=== PATIENT | male | born 1945 | race Caucasian/White ===

== ENCOUNTER → 2017-08-06 | Outpatient (CLI) | payer OTHER, MEDICARE ==
[~2017-08-06] VITALS: Ht 182.9 cm; Wt 112.5 kg
[2017-08-06] VITALS (13 sets, daily range): BP systolic 112–156; BP diastolic 61–105
[~2017-08-06] MED LIST: ADULT LOW DOSE81 MG PO; CARTIA XT120 M1 PO; CARTIA XT240 M1 PO; COUMADIN 5 MG TA5 M1 PO; CRESTOR10 MG PO; K-TAB10 MEQ PO; LASIX 20 MG TAB20 MG PO; LOPRESSOR; LOPRESSOR25 PO; LOVASA PO; LOVAZA1000 MG PO; NIASPAN 500 MG500 M1 PO; NITROGLYCERIN0.4 MG SL; NOHOMEMEDICATIONS; PLAVIX 75 MG TA75 MG PO; PRAVACHOL20 MG PO; VITAMIN D3400 UNIT; XARELTO20 MG PO; ZYRTEC; ZYRTEC10 MG PO
[2017-08-06 08:30] LABS: HEMATOCRIT 46.7 % (42.0-52.0); MCHC 34.3 g/dL (28.0-37.0); MCV 90.1 fL (80.0-100.0); MPV 9.1 fl. (7.2-11.1); RBC 5.18 mil/uL (4.50-6.00); RDW-CV 13.1 % (10.5-14.5); WBC 9.5 thou/uL (4.0-11.0)
[2017-08-06 08:41] LABS: ANION GAP 12 mmol/L (7-16); BUN 16 mg/dL (7-18); CALCIUM 8.9 mg/dL (8.5-10.1); CHLORIDE 104 mmol/L (98-107); CO2 26 mmol/L (21-32); GLUCOSE 121 mg/dL (70-99); POTASSIUM 4.2 mmol/L (3.5-5.1); SODIUM 142 mmol/L (136-145)
[2017-08-06 08:45] LABS: ALBUMIN 3.4 g/dL (3.4-5.0); ALKALINE PHOSPHATASE 100 U/L (46-116); CHOLESTEROL 183 mg/dL (<200); HDL CHOLESTEROL 31 mg/dL (>40); LDL CHOLESTEROL 114 mg/dL (<100); SGOT 26 U/L (15-37); SGPT 20 U/L (30-65); TC:HDL 5.9 Ratio (Not establshd); TOTAL BILIRUBIN 0.9 mg/dL (<0.1-1.0); TOTAL PROTEIN 6.9 g/dL (6.4-8.2); TRIGLYCERIDE 194 mg/dL (<150); VLDL 39 mg/dL (<40)
[2017-08-06 08:49] LABS: APTT 32.5 Seconds (25.0-31.3); INR 1.1; PROTIME 10.6 Seconds (9.20-11.50)
[2017-08-06 08:51] LABS: SERUM ASSESSMENT Clear
--- NOTE | 2017-08-06 13:14 | TEE ---
[place] [address] TRANSESOPHAGEAL ECHOCARDIOGRAM Name: ERICK BURT JR Room: [facility]#: [id number] Admission: 08/06/17 Attend Phys: Jaskaran Islas, Discharge: Date of : 45 Date of Service: 08/06/17 1314 Report #: [id number] THIS REPORT FOR: //name// APPROVED REPORT Study performed: 08/06/2017 08:32:07 EXAM: Transesophageal Echocardiogram Patient Location: Out-Patient Status: routine BSA: 2.33 HR: 55 bpm BP: 144/71 mmHg Rhythm: NSR Other Information Study Quality: Good Indications Mitral Valve Disease Echo Enhancing Agent Indication: Rule out Shunt Agent(s) / Amount(s) Used: Agitated Saline 10 cc Procedure After obtaining informed consent, patient underwent transesophageal echo in the [employer]. Type of Sedation : Conscious Sedation Sedation was administered by Rianna Haider RN. Sedation start time: 919 Case end Time: 934 Sedation was achieved intravenously with: Versed (3) Fentanyl (25) Transesophageal probe was inserted and advanced into esophagus without difficulty by Jaskaran Islas MD, FACC. Echo enhancement indication: R/O Septal defect. Echo enhancement agent administered: Agitated Saline The RAINA was performed without complications. Throughout the procedure, the blood pressure, pulse oximetry, cardiac rhythm, and rate were monitored. The patient tolerated the procedure without adverse effects. Recovery from conscious sedation was uneventful and vital signs were stable. Left Ventricle [place] [id number] TRANSESOPHAGEAL ECHOCARDIOGRAM Name: ERICK BURT JR Room: [facility]#: [id number] Admission: 08/06/17 Attend Phys: Jaskaran Islas, Discharge: Date of : 45 Date of Service: 08/06/17 1314 Report #: [id number] The left ventricle is normal size. There is normal LV segmental wall motion. There is normal left ventricular wall thickness. There is no ventricular septal defect visualized. Left ventricular systolic function is normal. The left ventricular ejection fraction is within the normal range. No left ventricle thrombus noted on this study. LVEF is 50%. Right Ventricle The right ventricle is normal size. The right ventricular systolic function is normal. Atria Thrombus is present in the left atrial appendage.There is spontaneous echo contrast. Interatrial septum is intact without evidence of ASD or PFO. The right atrium size is normal. Aortic Valve Moderate aortic valve sclerosis. Mild aortic regurgitation. There is no aortic valvular stenosis. Mitral Valve Mitral valve leaflet thickening with severe restriction of leaflet motion, with PMVL severely redundant, chordal structures are intact Area by pressure 1/2 time .8cm Mild mitral regurgitation. Severe mitral stenosis. Tricuspid Valve The tricuspid valve is normal in structure. There is no tricuspid valve regurgitation noted. Pulmonic Valve The pulmonary valve is normal in structure. There is no pulmonic valvular regurgitation. Great Vessels The aortic root is normal in size. Pericardium There is no pericardial effusion. <Conclusion> LVEF is 50%. There is normal LV segmental wall motion. Thrombus is present in the left atrial appendage.There is spontaneous echo contrast. Mitral valve leaflet thickening with [place] [address] TRANSESOPHAGEAL ECHOCARDIOGRAM Name: ERICK BURT JR Room: [facility]#: [id number] Admission: 08/06/17 Attend Phys: Jaskaran Islas, Discharge: Date of : 45 Date of Service: 08/06/17 1314 Report #: [id number] motion, with PMVL severely redundant, chordal structures are intact Area by pressure 1/2 time .8cm Severe mitral stenosis. Mild mitral regurgitation. Moderate aortic valve sclerosis. Mild aortic regurgitation. There is no aortic valvular stenosis. <ELECTRONICALLY SIGNED> By: Jaskaran Islas MD, [facility] 08/06/17 1314 131 1314 Jaskaran Islas MD, FACC /INF
--- NOTE | 2017-08-06 15:22 | EKG ---
[place] [address] ELECTROCARDIOGRAM REPORT Name: ERICK BURT JR Room: [facility]#: [id number] Admission: 08/06/17 Attend Phys: Jaskaran Islas MD Discharge: Date of : 45 Report #: [id number] THIS REPORT FOR: //name// [facility] Test Date: 2017-08-06 Test Time: 08:38:03 Pat Name: ERICK BURT Department: Room: Gender: M [employer] Fireman: GEORGE : 1945 Requested By: Jaskaran Islas Order Number: [id number] Reading MD: Jaskaran Islas Measurements Intervals [place] Rate: 58 P: 267 MT: 77 QRS: -41 QRSD: 100 T: 61 QT: 435 QTc: 428 Interpretive Statements afib Supraventricular bigeminy Short MT interval Left axis deviation Compared to ECG 07/21/2015 10:08:51 Ectopic atrial rhythm now present Atrial premature complex(es) now present Short MT interval now present Atrial fibrillation no longer present Electronically Signed On 08-06-2017 15:21:53 [employer] by Jaskaran Islas [email or web address] <ELECTRONICALLY SIGNED> By: Jaskaran Islas MD, [facility] 08/06/17 1521 0838 0838 Jaskaran Islas MD, [facility] /EPI
--- NOTE | 2017-08-27 13:42 | CARD ---
[address] [address] CARDIAC CATH REPORT Name: ERICK BURT JR Room: [facility]#: [id number] Admission: 08/06/17 Attend Phys: Jaskaran Islas MD Discharge: Date of : 45 Report #: [id number] THIS REPORT FOR: //name// APPROVED REPORT Study performed: 08/06/2017 09:12:48 Patient Details Patient Status: Out-Patient Room #: The patient is a 72 year-old male Event Personnel Jaskaran Islas Drawing Instructor, Rianna Haider RN Mortgage Loan Officer Originator, Miguel Long (R) Monitor, RoryGermania groves RTR Scrub Procedures Performed Left Heart Cath w/or w/o Coronaries Procedure Narrative A Marquette 6 FR sheath was inserted into the Right Femoral Artery. Coronary angiography was performed using coronary diagnostic catheters. The right coronary system was accessed and visualized with a Diagnostic JR4 catheter. The left coronary system was accessed and visualized with a Diagnostic JL 4 catheter. The left ventricle was accessed and visualized with a Diagnostic Angled Pig catheter. Closure device was deployed with a Fr MynxGrip 6/7F. The patient tolerated the procedure well and there were no complications associated with the procedure. Intraoperative Conscious Sedation no sedation given Fluoro Time: 4.6 minutes Dose: DAP 40475 cGycm2 1461 mGy Contrast Type and Amount: Omnipaque 160 ml Diagnostic Cath Left Main normal LAD proximal normal, mid 50-%,distal small normal Diagonal 1 normal Diagonal 2 small normal Circumflex proximal moderate 40-45%mid and distal small vessel OM1 large moderate 40-50% OM2 medium size proximal 70-75% [place] [address] CARDIAC CATH REPORT Name: ERICK BURT JR Room: [facility]#: [id number] Admission: 08/06/17 Attend Phys: Jaskaran Islas MD Discharge: Date of : 45 Report #: [id number] Right Coronary large dominant, proximal normal, mid 30%, distal normal R PDA 30% RPLV 30% Left Ventriculography The left ventricle is normal in size with normal contractility. The left ventricular ejection fraction is estimated to be >55%. Left ventricular wall motion abnormalities are not present. There is severe mitral calcification mitral insufficiency. Hemodynamics The aortic pressure is 121/75 mmHg with a mean of 93 mmHg. The left ventricular pressure is 130/9 mmHg with a mean of mmHg. The left ventricular end diastolic pressure is 24 mmHg. Conclusion 1. Severe CAD of Lcx Obtuse marginal 2 2. Mitral stenosis 3. afib 4. normal LV systolic function Recommendations Valve Surgery CABG Diagnostic Cath Approved by: Jaskaran Islas MD Date/Time: <ELECTRONICALLY SIGNED> By: Jaskaran Islas MD, FAC 08/27/17 1342 134 1342Jaskaran Islas MD, [facility] /INF
== END | disposition home or self-care (01) ==
LOC: M.CL 07:32
PROVIDERS: Internal Medicine Cardiovascular Disease
DX: I25.10 Atherosclerotic heart disease of native coronary artery without angina pectoris (principal); I08.0 Rheumatic disorders of both mitral and aortic valves; I48.91 Unspecified atrial fibrillation; J45.909 Unspecified asthma, uncomplicated; Z79.899 Other long term (current) drug therapy; Z86.73 Personal history of transient ischemic attack (TIA), and cerebral infarction without residual deficits; Z98.890 Other specified postprocedural states; Z90.49 Acquired absence of other specified parts of digestive tract; Z79.01 Long term (current) use of anticoagulants

== ENCOUNTER → 2017-10-11 | Outpatient (CLI) | payer OTHER, MEDICARE ==
[2017-10-11 14:42] LABS: INR 1.9; PROTIME 18.1 Seconds (9.20-11.50)
[2017-10-11 14:54] LABS: CALCIUM 9.1 mg/dL (8.5-10.1); CREATININE 1.2 mg/dL (0.6-1.3); POTASSIUM 4.3 mmol/L (3.5-5.1)
== END ==
LOC: M.LAB 14:12
PROVIDERS: Internal Medicine Cardiovascular Disease
DX: Z95.2 Presence of prosthetic heart valve (principal)